=== PATIENT | female | born 1955 | race African-American/Black ===

== ENCOUNTER 2017-02-18 22:29 | Emergency (ER) | payer OTHER ==
[~2017-02-18] VITALS: Ht 175.3 cm; Wt 70.3 kg
[~2017-02-18 22:29] MED LIST: FIORICET PO; FIORINAL WITH1 EACH PO; IBUPROFEN 800800 MG PO; NOHOMEMEDICATIONS; NORCO 5-325 TA1 EACH PO; PENICILLIN V P500 MG PO; PERCOCET 5-3251 EACH PO; ULTRAM 50MG TAB50 MG PO; ZOFRAN4 MG PO
[2017-02-19] MEDS ORDERED: PEPCID20 MG PO (00:35)
[2017-02-19] MEDS ORDERED: CLONIDINE0.1 PO (00:35)
[2017-02-19] MEDS ORDERED: PREDNISONE 20 M20 MG PO (00:35)
[2017-02-19 00:49] VITALS: BP 132/78
== END 2017-02-19 00:50 | disposition home or self-care (01) ==
LOC: ER 22:29
DX: T78.3XXA Angioneurotic edema, initial encounter (principal); I10 Essential (primary) hypertension; F17.210 Nicotine dependence, cigarettes, uncomplicated; F10.99 Alcohol use, unspecified with unspecified alcohol-induced disorder

== ENCOUNTER 2017-08-31 13:39 | Emergency (ER) | payer OTHER ==
[~2017-08-31] VITALS: Ht 175.3 cm; Wt 72.6 kg
[~2017-08-31 13:39] MED LIST changes: +CLONIDINE0.1 PO; +PEPCID20 MG PO; +PREDNISONE 20 M20 MG PO
[2017-08-31] MEDS ORDERED: BUTALB-APAP-CA1 EACH PO (14:15)
[2017-08-31] MEDS ORDERED: PENICILLIN V P500 MG PO (14:15)
[2017-08-31] MEDS ORDERED: IBUPROFEN 600600 M1 PO (14:15)
== END 2017-08-31 14:30 | disposition home or self-care (01) ==
LOC: ER 13:39
DX: K04.7 Periapical abscess without sinus (principal); I10 Essential (primary) hypertension

== ENCOUNTER 2018-01-03 17:19 | Emergency (ER) | payer OTHER ==
[~2018-01-03] VITALS: Ht 175.3 cm; Wt 72.6 kg
[~2018-01-03 17:19] MED LIST changes: +BUTALB-APAP-CA1 EACH PO; +IBUPROFEN 600600 M1 PO
[2018-01-03] MEDS ORDERED: PENICILLIN V P500 MG PO (17:30)
[2018-01-03] MEDS ORDERED: FIORINAL WITH1 EACH PO (17:30)
[2018-01-03 17:53] VITALS: BP 149/85
== END 2018-01-03 18:03 | disposition home or self-care (01) ==
LOC: ER 17:19
DX: K05.00 Acute gingivitis, plaque induced (principal); K05.6 Periodontal disease, unspecified; I10 Essential (primary) hypertension; F17.210 Nicotine dependence, cigarettes, uncomplicated

== ENCOUNTER 2018-01-17 17:50 | Emergency (ER) | payer OTHER ==
[~2018-01-17] VITALS: Ht 175.3 cm; Wt 73.5 kg
[2018-01-17] MEDS ORDERED: LISINOPRIL10 MG PO (18:49)
[2018-01-17] MEDS ORDERED: UNICOMPLEX M TA1 TA1 PO (18:50)
[2018-01-17] MEDS ORDERED: LOVASTATIN 20 M20 MG PO (18:52)
[2018-01-17] MEDS ORDERED: MOBIC7.5 MG PO (19:02)
[2018-01-17] MEDS ORDERED: NORFLEX100 MG PO (19:02)
[2018-01-17] MEDS ORDERED: BUTALB-APAP-CA1 EACH PO (19:13)
[2018-01-17 19:23] VITALS: BP 160/91
== END 2018-01-17 19:24 | disposition home or self-care (01) ==
LOC: ER 17:50
DX: S39.012A Strain of muscle, fascia and tendon of lower back, initial encounter (principal); S29.012A Strain of muscle and tendon of back wall of thorax, initial encounter; R51 Headache; I10 Essential (primary) hypertension; F17.210 Nicotine dependence, cigarettes, uncomplicated; V89.2XXA Person injured in unspecified motor-vehicle accident, traffic, initial encounter; Y92.89 Other specified places as the place of occurrence of the external cause; Y93.89 Activity, other specified; Y99.8 Other external cause status

== ENCOUNTER 2018-05-09 14:22 | Emergency (ER) | payer OTHER ==
[~2018-05-09] VITALS: Ht 175.3 cm; Wt 59.0 kg
[~2018-05-09 14:22] MED LIST changes: +LISINOPRIL10 MG PO; +LOVASTATIN 20 M20 MG PO; +MOBIC7.5 MG PO; +NORFLEX100 MG PO; +UNICOMPLEX M TA1 TA1 PO
[2018-05-09] MEDS ORDERED: BUTALB-APAP-CA1 EACH PO (15:03)
[2018-05-09] MEDS ORDERED: PENICILLIN V P500 MG PO (15:03)
== END 2018-05-09 15:35 | disposition home or self-care (01) ==
LOC: ER 14:22
DX: K08.89 Other specified disorders of teeth and supporting structures (principal); I10 Essential (primary) hypertension; F17.210 Nicotine dependence, cigarettes, uncomplicated

== ENCOUNTER 2020-09-30 08:37 | Emergency (ER) | payer OTHER ==
[~2020-09-30] VITALS: Ht 175.3 cm; Wt 63.5 kg
[2020-09-30] MEDS ORDERED: PROAIR HFA8.5 GM INH (10:19)
[2020-09-30] MEDS ORDERED: DOXYCYCLINE 10100 MG PO (10:19)
[2020-09-30] MEDS ORDERED: NORCO5 PO (10:19)
[2020-09-30 10:28] VITALS: BP 194/116
== END 2020-09-30 10:28 | disposition home or self-care (01) ==
LOC: ER 08:37
DX: J40 Bronchitis, not specified as acute or chronic (principal); I10 Essential (primary) hypertension; G43.909 Migraine, unspecified, not intractable, without status migrainosus; F17.210 Nicotine dependence, cigarettes, uncomplicated; Z79.899 Other long term (current) drug therapy